=== PATIENT | male | born 1965 | race American Indian/Alaskan Native ===

== ENCOUNTER 2017-03-12 09:49 | Emergency (ER) | payer BC ==
--- NOTE | 2017-03-12 12:29 | Emergency Department Report ---
ED Upper Extremity Inj HPI - General Chief Complaint: Fever Stated Complaint: FEVER,DIZZY Time Seen by Provider: 03/12/17 11:09 Source: patient Mode of arrival: Ambulatory Limitations: No Limitations - History of Present Illness Initial Comments: This is a 51-year-old male nontoxic, well nourished in appearance, no acute signs of distress presents to the ED with c/o of cough, fever, rhinorrhea, and nasal congestion x1 week. Patient describes cough as productive yellow/green mucus production. Patient denies any fever, chills, headache, nausea, stiff neck , numbness, tingling, chest pain, shortness of breathe, hemoptysis, calf pain, or calf tenderness. Patient denies recent travels or long car rides. Denies any allergies or PMH. - Related Data Allergies Allergy/AdvReac Type Severity Reaction Status Date / Time No Known Allergies Allergy Verified 03/12/17 10:18 ED Review of Systems ROS: Stated complaint: FEVER,DIZZY Other details as noted in HPI ED Past Medical Hx - Past Medical History Previous Medical History?: No - Surgical History Past Surgical History?: No - Social History Smoking Status: Current Every Day Smoker Substance Use Type: Alcohol ED Physical Exam - General Limitations: No Limitations ED Course Vital Signs 03/12/17 10:15 Temperature 98.5 F Pulse Rate 92 H Respiratory 16 Rate Blood Pressure 112/79 O2 Sat by Pulse 99 Oximetry Critical care attestation.: If time is entered above; I have spent that time in minutes in the direct care of this critically ill patient, excluding procedure time. ED Disposition Condition: Stable Referrals: GREG JURADO MD [Primary Care Provider] - 3-5 Days
--- NOTE | 2017-03-12 12:30 | XRay Report ---
ROUTINE CHEST, TWO VIEWS: HISTORY: Cough. No comparison. There is subtle airspace opacity in the right upper lobe on the PA image and a subtle airspace opacity in the left lower lobe on the lateral image. Early pneumonia should be considered. No pleural effusion or pneumothorax is appreciated. Heart and mediastinal structures are within normal limits. IMPRESSION: Subtle air space opacities are identified in the right upper lobe and left lower lung concerning for multifocal pneumonia. Please correlate with the patient's clinical presentation.
[2017-03-12] MEDS ORDERED: TESSALON PERLES PO ONE (12:44)
--- NOTE | 2017-03-12 12:44 | Emergency Department Report ---
- General Chief Complaint: Fever Stated Complaint: FEVER,DIZZY Time Seen by Provider: 03/12/17 11:09 Source: patient Mode of arrival: Ambulatory Limitations: No Limitations - History of Present Illness Initial Comments: This is a 51-year-old male nontoxic, well nourished in appearance, no acute signs of distress presents to the ED with c/o of cough, fever, rhinorrhea, and nasal congestion x1 week. Patient describes cough as productive yellow/green mucus production. Patient denies any fever, chills, headache, nausea, stiff neck , numbness, tingling, chest pain, shortness of breathe, hemoptysis, calf pain, or calf tenderness. Patient denies recent travels or long car rides. Denies any allergies or PMH. MD Complaint: fever, cough, rhinorrhea, nasal congestion -: week(s) (1) Severity: mild Severity scale (0 -10): 8 Consistency: constant Improves With: nothing Worsens With: nothing Associated Symptoms: fever, chills, rhinorrhea, nasal congestion, cough. denies : myalgias, diaphoresis, headache, sore throat, stiff neck, chest pain, shortness of breath, abdominal pain, nausea, vomiting, diarrhea, dysuria, rash, confusion, right sweats, weight loss, epistaxis, hoarseness, ear pain Treatments Prior to Arrival: other (Nightquil) - Related Data Previous Rx's Medication Instructions Recorded Last Taken Type Benzonatate [Tessalon Perle] 100 mg PO Q8H #15 capsule 03/12/17 Unknown Rx Levofloxacin [Levaquin TAB] 750 mg PO QDAY #5 tablet 03/12/17 Unknown Rx Allergies Allergy/AdvReac Type Severity Reaction Status Date / Time No Known Allergies Allergy Verified 03/12/17 10:18 ED Review of Systems ROS: Stated complaint: FEVER,DIZZY Other details as noted in HPI Constitutional: chills, fever Eyes: denies: eye pain, eye discharge, vision change ENT: denies: ear pain, throat pain Respiratory: cough. denies: shortness of breath, wheezing Cardiovascular: denies: chest pain, palpitations Endocrine: no symptoms reported Gastrointestinal: denies: abdominal pain, nausea, diarrhea Genitourinary: denies: urgency, dysuria Musculoskeletal: denies: back pain, joint swelling, arthralgia Skin: denies: rash, lesions Neurological: denies: headache, weakness, paresthesias Psychiatric: denies: anxiety, depression Hematological/Lymphatic: denies: easy bleeding, easy bruising ED Past Medical Hx - Past Medical History Previous Medical History?: No - Surgical History Past Surgical History?: No - Social History Smoking Status: Current Every Day Smoker Substance Use Type: Alcohol - Medications Home Medications: Home Medications Medication Instructions Recorded Confirmed Last Taken Type Benzonatate [Tessalon Perle] 100 mg PO Q8H #15 capsule 03/12/17 Unknown Rx Levofloxacin [Levaquin TAB] 750 mg PO QDAY #5 tablet 03/12/17 Unknown Rx ED Physical Exam - General Limitations: No Limitations General appearance: alert, in no apparent distress - Head Head exam: Present: atraumatic, normocephalic - Eye Eye exam: Present: normal appearance, PERRL, EOMI. Absent: scleral icterus, conjunctival injection, nystagmus, periorbital swelling, periorbital tenderness Pupils: Present: normal accommodation - ENT ENT exam: Present: normal exam, normal orophraynx, mucous membranes moist, TM's normal bilaterally, normal external ear exam - Neck Neck exam: Present: normal inspection, full ROM. Absent: tenderness, meningismus, lymphadenopathy, thyromegaly - Respiratory Respiratory exam: Present: normal lung sounds bilaterally. Absent: respiratory distress, wheezes, rales, rhonchi, stridor, chest wall tenderness, accessory muscle use, decreased breath sounds, prolonged expiratory - Cardiovascular Cardiovascular Exam: Present: regular rate, normal rhythm, normal heart sounds. Absent: irregular rhythm, systolic murmur, diastolic murmur, rubs, gallop - GI/Abdominal GI/Abdominal exam: Present: soft, normal bowel sounds. Absent: distended, tenderness, guarding, rebound, rigid, diminished bowel sounds - Rectal Rectal exam: Present: deferred - Extremities Exam Extremities exam: Present: normal inspection, full ROM, normal capillary refill. Absent: tenderness, pedal edema, joint swelling, calf tenderness - Back Exam Back exam: Present: normal inspection, full ROM. Absent: tenderness, CVA tenderness (R), CVA tenderness (L), muscle spasm, paraspinal tenderness, vertebral tenderness, rash noted - Neurological Exam Neurological exam: Present: alert, oriented X3, CN II-XII intact, normal gait, reflexes normal - Psychiatric Psychiatric exam: Present: normal affect, normal mood - Skin Skin exam: Present: warm, dry, intact, normal color. Absent: rash ED Course Vital Signs 03/12/17 10:15 Temperature 98.5 F Pulse Rate 92 H Respiratory 16 Rate Blood Pressure 112/79 O2 Sat by Pulse 99 Oximetry - Reevaluation(s) Reevaluation #1: 03/12/17 12:41 Patient is speaking in full sentences with no signs of distress noted. - Consultations Consultation #1: 03/12/17 12:57 Dr. Simmons has been consulted about patient history, physical exam, and imaging and reviewed xray results and stated d/c with levo and f/u within 24 hours. ED Medical Decision Making - Lab Data Result diagrams: 03/12/17 12:48 03/12/17 12:48 - Medical Decision Making This is a 51-year-old male that presents with upper respiratory infection. Patient was examined by me and patient is stable. chest xray obtained and dictated by radiologist with multifocal pneumonia. Patient was notified of xray results with no questions noted. CBC, BMP, josephine ph, blood cultures, lactic acid , CK obtained. Influanza swab negative. Patient will be treated with levo and Tessalon Perles. Patient was instructed to follow up with a primary care doctor in 24 hours or if symptoms worsen and continue to return to the emergency room as soon as possible. At time time of discharge, the patient does not seem toxic or ill in appearance. No acute signs of distress noted. Patient agrees to discharge treatment plan of care. No further questions noted by the patient. stated she was recent diagnosed with PNA and was prescribed Levo 500mg which has given patient this morning. Critical care attestation.: If time is entered above; I have spent that time in minutes in the direct care of this critically ill patient, excluding procedure time. ED Disposition Clinical Impression: Pneumonia Qualifiers: Pneumonia type: due to unspecified organism Laterality: bilateral Lung location : unspecified part of lung Qualified Code(s): J18.9 - Pneumonia, unspecified organism Disposition: DC- TO HOME OR SELFCARE Is pt being admited?: No Does the pt Need Aspirin: No Condition: Stable Instructions: Benzonatate (By mouth), Levofloxacin (By mouth), Bacterial Pneumonia (ED) Additional Instructions: Follow-up with a primary care doctor in 24 hours or if symptoms worsen and continue return to emergency room as soon as possible. Prescriptions: Benzonatate [Tessalon Perle] 100 mg PO Q8H #15 capsule Levofloxacin [Levaquin TAB] 750 mg PO QDAY #5 tablet Referrals: [facility] [Outside] - 3-5 Days [facility] [Outside] - 3-5 Days GREG JURADO MD [Primary Care Provider] - 24 Hours APRIL KELLEY MD [Staff Physician] - 24 Hours Forms: Work/School Release Form(ED)
[2017-03-12 12:58] LABS: Basophils % (Auto) 0.6 % (0.0-1.8); Eosinophils % (Auto) 0.2 % (0.0-4.3); Hematocrit 38.4 % (35.5-45.6); Hemoglobin 13.1 gm/dl (11.8-15.2); Mean Corpuscular HGB Conc 34 % (32-34); Mean Corpuscular Hemoglobin 32 pg (28-32); Mean Corpuscular Volume 92 fl (84-94); Platelet Count 328 K/mm3 (140-440); Red Blood Count 4.15 M/mm3 (3.65-5.03); Red Cell Distribution Width 14.1 % (13.2-15.2); White Blood Count 19.5 K/mm3 (4.5-11.0)
[2017-03-12] MEDS ORDERED: LEVAQUIN PO ONE (13:09)
[2017-03-12 13:24] LABS: Anion Gap 16 mmol/L; BUN/Creatinine Ratio 16; Blood Urea Nitrogen 14 mg/dL (9-20); Calcium 9.1 mg/dL (8.4-10.2); Carbon Dioxide 28 mmol/L (22-30); Chloride 91.2 mmol/L (98-107); Glucose 99 mg/dL (75-100); Potassium 4.3 mmol/L (3.6-5.0); Sodium 131 mmol/L (137-145)
[2017-03-12] MEDS ORDERED: LEVAQUIN 750MG/150ML 750 MG/150 ML BAG IV ONE (13:35)
[2017-03-12] MEDS ORDERED: NACL 0.9% 1000 ML 1,000 ML IV ONE (13:35)
[2017-03-12 15:06] VITALS: BP 120/80
== END 2017-03-12 15:04 | disposition home or self-care (01) ==
LOC: ED 09:49
DX: J18.9 Pneumonia, unspecified organism (principal); F17.200 Nicotine dependence, unspecified, uncomplicated
CPT/HCPCS: 36415; 71020; 80048; 82140; 82550; 82805; 85025; 87040; 87400; 96360; 99284; J7030